=== PATIENT | male | born 1960 | race Two or more races ===

== ENCOUNTER 2023-02-23 10:15 | Outpatient (CLI) | payer OTHER | END 2023-02-23 13:50 | disposition home or self-care (01) | LOC: LAB 10:15 | PROVIDERS: ATTEND Orthopaedic Surgery | DX: M25.561 Pain in right knee (principal); I49.9 Cardiac arrhythmia, unspecified; I10 Essential (primary) hypertension; Z76.89 Persons encountering health services in other specified circumstances; D64.89 Other specified anemias; E88.89 Other specified metabolic disorders; D68.8 Other specified coagulation defects; N39.0 Urinary tract infection, site not specified; A49.02 Methicillin resistant Staphylococcus aureus infection, unspecified site ==